=== PATIENT | female | born 1955 | race Caucasian/White ===

== ENCOUNTER 2023-07-01 15:32 | Emergency (ER) | payer MEDICARE ==
[~2023-07-01] VITALS: Ht 160 cm; Wt 49.9 kg
[~2023-07-01 15:32] MED LIST: BLOOD PRESSURE MED; HYDROCODONE BIT1 T11 PO; PERCOCET 325 MG1 TA2 PO
[2023-07-01 16:13] LABS: BASO % 0.2 % (0.0-1.0); EOS % 0.2 % (1.0-4.0); HEMATOCRIT 47.3 % (37.0-47.0); LYMPH # 1.2 10*3/uL (1.3-4.4); LYMPH % 13.9 % (27.0-41.0); MEAN CELL VOLUME 105.3 fl (81.0-99.0); MEAN CORPUSCULAR HGB 34.1 pg (27.0-31.0); MEAN CORPUSCULAR HGB CONC 32.3 g/dl (33.0-37.0); MONO # 0.9 10*3/uL (0.1-1.0); NEUT # 6.3 10*3/uL (2.3-7.9); NEUT % 74.5 % (47.0-73.0); PLATELET COUNT AUTOMATED 277 10*3/uL (130-400); RED BLOOD COUNT 4.49 10*6/uL (4.10-5.10); RED CELL DISTRI WIDTH 12.2 % (0-14.5); WHITE BLOOD COUNT 8.4 10*3/uL (4.8-10.8)
[2023-07-01] MEDS ORDERED: CRESTOR5 M1 PO (16:20)
[2023-07-01] MEDS ORDERED: NORVASC10 MG PO (16:21)
[2023-07-01] MEDS ORDERED: PLAVIX75 M1 PO (16:21)
[2023-07-01] MEDS ORDERED: METOPROLOL SUCC25 M2 PO (16:21)
[2023-07-01 16:38] LABS: ALKALINE PHOSPHATASE 157 U/L (46-116); BUN 6 mg/dl (9-23); CHLORIDE 104 mmol/L (98-107); POTASSIUM 3.8 mmol/L (3.4-5.1); SGPT/ALT 12 U/L (5-49); TOTAL PROTEIN 7.4 gm/dL (6.0-8.0)
[2023-07-01] MEDS ORDERED: VIBRAMYCIN100 MG PO (17:30)
[2023-07-01] MEDS ORDERED: PREDNISONE50 MG PO (17:30)
== END 2023-07-01 17:37 | disposition home or self-care (01) ==
LOC: ED 15:32
PROVIDERS: Physician Assistant Medical
DX: J18.9 Pneumonia, unspecified organism (principal); I10 Essential (primary) hypertension; Z98.51 Tubal ligation status; Z98.890 Other specified postprocedural states; Z20.822 Contact with and (suspected) exposure to COVID-19; F17.210 Nicotine dependence, cigarettes, uncomplicated